=== PATIENT | male | born 1970 | race African-American/Black ===

== ENCOUNTER 2020-05-15 05:29 | Day surgery (SDC) | payer BC ==
[2020-05-12 10:43] VITALS: BMI 39.5
[2020-05-15 11:14] VITALS: TEMP 97.8
[2020-05-15 12:02] VITALS: BP 118/71; PULSE 67
--- NOTE | 2020-05-16 15:40 | PATH ---
Surgical Pathology Report Patient Name: LEANNA VELASCO [facility]. Rec. #: [id number] /Age/Gender: 1970 (Age: 49) / M Account: [id number] Location: [facility]-ENDOSCOPY Taken: 05/15/2020 Received: 05/15/2020 Reported: 05/16/2020 Physicians: Daniela Conner M.D. Specimen(s) Received A: DUODENUM SEOND PORTION AND BULB B: ANTRUM C: DISTAL AND MID ESOPHAGUS Clinical History History of dyspepsia, gastric polyp Postoperative diagnosis: Hiatal hernia, GERD Final Diagnosis A. DUODENAL SECOND PORTION AND BULB, BIOPSY: DUODENAL MUCOSA WITH NO SIGNIFICANT PATHOLOGIC CHANGE. NO HISTOLOGIC EVIDENCE OF INTRAEPITHELIAL LYMPHOCYTOSIS. B. ANTRUM, BIOPSY: GASTRIC MUCOSA WITH CHRONIC GASTRITIS. IMMUNOSTAIN FOR H. PYLORI IS NEGATIVE. NEGATIVE FOR INTESTINAL METAPLASIA. C. DISTAL AND MID ESOPHAGUS, BIOPSY: SQUAMOUS MUCOSA WITH FOCAL CHANGES CONSISTENT WITH MILD REFLUX ESOPHAGITIS. NO HISTOLOGIC EVIDENCE OF EOSINOPHILIC ESOPHAGITIS. NEGATIVE FOR INTESTINAL METAPLASIA. Electronically Signed Kennedy Dooley M.D. Gross Description A. Received in formalin, labeled "biopsy duodenum second portion" are 3 [place], irregular portions of soft tissue averaging 0.3 cm. in greatest dimension. The specimens are submitted in toto in one cassette. B. Received in formalin, labeled "biopsy antrum" are 4 pre[place], irregular portions of soft tissue ranging from 0.3-0.4 cm. in greatest dimension. The specimens are submitted in toto in one cassette. C. Received in formalin, labeled "biopsy distal and mid esophagus" are 4 pre[place], irregular portions of soft tissue ranging from 0.2-0.4 cm. in greatest dimension. The specimens are submitted in toto in one cassette. DL/05/15/2020 saudi/05/15/2020
== END 2020-05-15 12:03 | disposition home or self-care (01) ==
LOC: JASU-ENDO 05:29
PROVIDERS: ATTEND Internal Medicine Gastroenterology
PROC: 0DB68ZX Excision of Stomach, Via Natural or Artificial Opening Endoscopic, Diagnostic (ICD-10-PCS; 2020-05-15)
PROC: 0DB38ZX Excision of Lower Esophagus, Via Natural or Artificial Opening Endoscopic, Diagnostic (ICD-10-PCS; principal; 2020-05-15 11:00)
DX: K29.50 Unspecified chronic gastritis without bleeding (principal); K21.0 Gastro-esophageal reflux disease with esophagitis; I10 Essential (primary) hypertension; K44.9 Diaphragmatic hernia without obstruction or gangrene
CPT/HCPCS: 88305-TC; 88342-TC

== ENCOUNTER 2023-05-20 05:09 | Day surgery (SDC) | payer BC ==
[2023-05-19 12:35] VITALS: BMI 35.9
[2023-05-20 14:22] VITALS: TEMP 97.8
[2023-05-20 14:23] VITALS: BP 97/57; PULSE 60; RESP 15
== END 2023-05-20 14:35 | disposition home or self-care (01) ==
LOC: JASU-ENDO 05:09
PROVIDERS: ATTEND Internal Medicine Gastroenterology
PROC: 0DJD8ZZ Inspection of Lower Intestinal Tract, Via Natural or Artificial Opening Endoscopic (ICD-10-PCS; principal; 2023-05-20 12:45)
DX: Z12.11 Encounter for screening for malignant neoplasm of colon (principal); K64.8 Other hemorrhoids